=== PATIENT | male | born 1955 | race Caucasian/White ===

== ENCOUNTER 2022-05-20 09:08 | Inpatient (IN) | payer MEDICARE, OTHER ==
[~2022-05-20] VITALS: Ht 182.9 cm; Wt 168.4 kg
[2022-05-20 09:54] LABS: HEMATOCRIT 38.1 % (42.0-52.0); HEMOGLOBIN 12.9 g/dl (13.5-17.5); MEAN CORPUSCULAR HEMOGLOBIN 29.6 pg (27.0-33.0); MEAN CORPUSCULAR HGB CONC 33.9 g/dl (32.0-36.5); MEAN CORPUSCULAR VOLUME 87.4 fl (80.0-96.0); PLATELET COUNT, AUTOMATED 109 10^3/uL (150-450); RED BLOOD COUNT 4.36 10^6/uL (4.30-6.10); WHITE BLOOD COUNT 4.5 10^3/uL (4.0-10.0)
[2022-05-20 10:19] LABS: ATYPICAL LYMPH 12 % (0-5); GIANT PLATELETS 1+; LYMPHOCYTES 14 % (16-44); MONOCYTES 2 % (0-5); NEUTROPHILS 56 % (28-66); PLATELET ESTIMATE DECREASED (NORMAL); SMUDGE CELLS 1+
[2022-05-20 10:21] LABS: ROULEAUX 1+
[2022-05-20 10:26] LABS: RSV AMPLIFICATION NEGATIVE (NEGATIVE)
[2022-05-20 10:30] LABS: BLOOD UREA NITROGEN 22 MG/DL (7-18); CALCIUM LEVEL 7.9 MG/DL (8.8-10.2); CARBON DIOXIDE LEVEL 26 MEQ/L (21-32); CHLORIDE LEVEL 95 MEQ/L (98-107); CREATININE FOR GFR 1.16 MG/DL (0.70-1.30); GLOMERULAR FILTRATION RATE > 60.0 (>49); GLUCOSE, FASTING 100 MG/DL (70-100); POTASSIUM SERUM 4.4 MEQ/L (3.5-5.1); SODIUM LEVEL 128 MEQ/L (136-145)
[2022-05-20 11:14] LABS: ALBUMIN 2.2 GM/DL (3.2-5.2); ALT/SGPT 131 U/L (12-78); BILIRUBIN,DIRECT 1.3 MG/DL (0.0-0.2); NT-PRO BNP 449 PG/ML (<125); TOTAL PROTEIN 7.5 GM/DL (6.4-8.2)
[2022-05-20 12:07] LABS: OSMOLALITY SERUM 276 MOSM/KG (280-301)
[2022-05-20 12:30] LABS: FREE T4 1.15 NG/DL (0.76-1.46)
[2022-05-20 12:33] LABS: OSMOLALITY URINE 554 MOSM/KG (50-1400)
[2022-05-20 12:42] LABS: LIPASE 529 U/L (73-393)
[2022-05-20 13:00] LABS: SODIUM,RANDOM URINE < 10 MEQ/L
[2022-05-20] MEDS ORDERED: ISOVUE-370 76% 100ML VIAL As Ordered ONE (13:21)
[2022-05-20] MEDS ORDERED: APAP325T4 PO (19:07)
[2022-05-20] MEDS ORDERED: HOME MED LIST COMPLETE! XX SCH (19:10)
[2022-05-21] MEDS ORDERED: NS 1,000 ML IV ONE (00:55)
[2022-05-21] MEDS ORDERED: PIPERACILLIN/TAZOBACTAM SOD 4.5 GM in D5W MINI-BAG PLUS 50 ML IV ONE (00:55)
[2022-05-21] MEDS ORDERED: NS 1,000 ML IV SCH (01:55)
[2022-05-21] MEDS ORDERED: MORPHINE 2 MG/ML 1ML VIAL IV PRN (01:55)
[2022-05-21] MEDS ORDERED: ONDANSETRON 4MG 2ML VIAL IV PRN (01:55)
[2022-05-21 03:14] VITALS: BP 120/69
[2022-05-21 05:06] VITALS: BP 120/69
[2022-05-21 06:52] LABS: HEMATOCRIT 37.1 % (42.0-52.0); HEMOGLOBIN 12.5 g/dl (13.5-17.5); MEAN CORPUSCULAR HEMOGLOBIN 29.4 pg (27.0-33.0); MEAN CORPUSCULAR HGB CONC 33.7 g/dl (32.0-36.5); MEAN CORPUSCULAR VOLUME 87.3 fl (80.0-96.0); PLATELET COUNT, AUTOMATED 105 10^3/uL (150-450); RED BLOOD COUNT 4.25 10^6/uL (4.30-6.10)
[2022-05-21 07:00] LABS: INR 1.15; PROTHROMBIN TIME 15.1 SECONDS (12.7-14.5)
[2022-05-21 07:01] LABS: PARTIAL THROMBOPLASTIN TIME 38.5 SECONDS (25.9-37.0)
[2022-05-21 07:09] LABS: ALBUMIN 2.1 GM/DL (3.2-5.2); ALT/SGPT 133 U/L (12-78); BILIRUBIN,TOTAL 1.9 MG/DL (0.2-1.0); BLOOD UREA NITROGEN 19 MG/DL (7-18); CALCIUM LEVEL 7.9 MG/DL (8.8-10.2); CARBON DIOXIDE LEVEL 24 MEQ/L (21-32); CHLORIDE LEVEL 98 MEQ/L (98-107); CREATININE FOR GFR 1.08 MG/DL (0.70-1.30); GLOMERULAR FILTRATION RATE > 60.0 (>49); GLUCOSE, FASTING 88 MG/DL (70-100); LIPASE 468 U/L (73-393); POTASSIUM SERUM 3.8 MEQ/L (3.5-5.1); SODIUM LEVEL 128 MEQ/L (136-145); TOTAL PROTEIN 7.6 GM/DL (6.4-8.2)
[2022-05-21 07:42] LABS: HEMOGLOBIN A1c 5.5 %
[2022-05-21] MEDS ORDERED: PIPERACILLIN/TAZOBACTAM SOD 3.375 GM in D5W MINI-BAG PLUS 50 ML IV SCH (08:00)
[2022-05-21 08:10] LABS: ANISOCYTOSIS 1+; ATYPICAL LYMPH 10 % (0-5); EOSINOPHILS 1 % (0-3); LYMPHOCYTES 21 % (16-44); MONOCYTES 7 % (0-5); NEUTROPHILS 55 % (28-66); PLATELET ESTIMATE DECREASED (NORMAL); ROULEAUX 1+; SMUDGE CELLS 1+
[2022-05-22] MEDS ORDERED: ENOXAPARIN 40MG/0.4ML SYRINGE (J1650 PER 10MG) SC SCH (09:00)
== END 2022-05-21 12:25 | disposition left against medical advice (07) | DRG 445 ==
LOC: M ED 09:08 → M ED INP 05-21 01:51 → ENRESERV 05-21 02:14 → M MS5PR 05-21 03:09
PROVIDERS: ADMIT Family Medicine; ATTEND Internal Medicine
DX: K81.9 Cholecystitis, unspecified (principal); E87.1 Hypo-osmolality and hyponatremia; J98.11 Atelectasis; J90 Pleural effusion, not elsewhere classified; Z68.43 Body mass index [BMI] 50.0-59.9, adult; E66.9 Obesity, unspecified; R60.0 Localized edema; R74.01 Elevation of levels of liver transaminase levels; D64.9 Anemia, unspecified; R74.8 Abnormal levels of other serum enzymes; Z98.41 Cataract extraction status, right eye; Z87.891 Personal history of nicotine dependence; E86.0 Dehydration

== ENCOUNTER 2022-05-23 09:35 | Observation (INO) | payer MEDICARE ==
[~2022-05-23] VITALS: Ht 182.9 cm; Wt 168.6 kg
[~2022-05-23 09:35] MED LIST changes: -COLA100C5 PO; -FOLI1TAB11 PO; -FURO20TA2 PO; -THIA100TA PO; -VITMTA PO
[2022-05-23 12:10] LABS: HEMATOCRIT 38.6 % (42.0-52.0); HEMOGLOBIN 12.6 g/dl (13.5-17.5); MEAN CORPUSCULAR HEMOGLOBIN 28.8 pg (27.0-33.0); MEAN CORPUSCULAR HGB CONC 32.6 g/dl (32.0-36.5); MEAN CORPUSCULAR VOLUME 88.3 fl (80.0-96.0); PLATELET COUNT, AUTOMATED 115 10^3/uL (150-450); RED BLOOD COUNT 4.37 10^6/uL (4.30-6.10); WHITE BLOOD COUNT 3.6 10^3/uL (4.0-10.0)
[2022-05-23 12:28] LABS: INR 1.13; PROTHROMBIN TIME 14.9 SECONDS (12.7-14.5)
[2022-05-23 12:34] LABS: ATYPICAL LYMPH 1 % (0-5); BASOPHILS 1 % (0-1); LYMPHOCYTES 26 % (16-44); MONOCYTES 3 % (0-5); NEUTROPHILS 65 % (28-66)
[2022-05-23 12:35] LABS: ANISOCYTOSIS 1+; PLATELET ESTIMATE DECREASED (NORMAL)
[2022-05-23 12:55] LABS: ACETAMINOPHEN LEVEL < 2.0 UG/ML (10.0-30.0)
[2022-05-23 12:56] LABS: ALBUMIN 2.4 GM/DL (3.2-5.2); ALKALINE PHOSPHATASE 430 U/L (45-117); ALT/SGPT 180 U/L (12-78); AST/SGOT 215 U/L (7-37); BILIRUBIN,DIRECT 1.4 MG/DL (0.0-0.2); BILIRUBIN,TOTAL 2.1 MG/DL (0.2-1.0); BLOOD UREA NITROGEN 12 MG/DL (7-18); CARBON DIOXIDE LEVEL 27 MEQ/L (21-32); CHLORIDE LEVEL 100 MEQ/L (98-107); CREATININE FOR GFR 0.95 MG/DL (0.70-1.30); GLOMERULAR FILTRATION RATE > 60.0 (>49); GLUCOSE, FASTING 91 MG/DL (70-100); LIPASE 435 U/L (73-393); POTASSIUM SERUM 3.8 MEQ/L (3.5-5.1); SODIUM LEVEL 134 MEQ/L (136-145); TOTAL PROTEIN 7.7 GM/DL (6.4-8.2)
[2022-05-23 13:44] LABS: HEPATITIS B SURFACE ANTIGEN NEGATIVE (NEGATIVE)
[2022-05-23 14:12] LABS: HEPATITIS B CORE ANTIBODY IGM NEGATIVE (NEGATIVE); HEPATITIS C VIRUS ABY INDEX < 0.0 INDEX (<0.8)
[2022-05-23 15:09] LABS: NT-PRO BNP 627 PG/ML (<125)
[2022-05-23 15:16] LABS: MONO REFLEX EBV COMP POSITIVE (NEGATIVE)
[2022-05-23] MEDS ORDERED: HOME MED LIST COMPLETE! XX SCH (15:40)
[2022-05-23] MEDS ORDERED: FUROSEMIDE 40MG/4ML VIAL (J1940) IV ONE (15:45)
[2022-05-23 16:25] LABS: CHOLESTEROL LEVEL 190 MG/DL (<200); CHOLESTEROL RISK RATIO 21.111 (<5); HDL CHOLESTEROL 9 MG/DL (>40); LDL CHOLESTEROL 142 MG/DL (<100); NON-HDL-C 181 MG/DL; TRIGLYCERIDES LEVEL 197 MG/DL (<150)
[2022-05-23 17:09] LABS: CK-MB VALUE MASS 3.5 NG/ML (<3.6); MB/CK RELATIVE INDEX 4.61 (< OR =4)
[2022-05-23] MEDS: DOCUSATE SODIUM 100MG CAPSULE PO SCH (21:00)
[2022-05-23] MEDS ORDERED: ENOXAPARIN 40MG/0.4ML SYRINGE (J1650 PER 10MG) SC SCH (21:00)
[2022-05-24 07:52] LABS: HEMOGLOBIN 13.2 g/dl (13.5-17.5); MEAN CORPUSCULAR VOLUME 87.9 fl (80.0-96.0); PLATELET COUNT, AUTOMATED 105 10^3/uL (150-450); RED BLOOD COUNT 4.55 10^6/uL (4.30-6.10); WHITE BLOOD COUNT 3.9 10^3/uL (4.0-10.0)
[2022-05-24 08:30] LABS: ALBUMIN 2.5 GM/DL (3.2-5.2); ALKALINE PHOSPHATASE 465 U/L (45-117); ALT/SGPT 205 U/L (12-78); AST/SGOT 235 U/L (7-37); BILIRUBIN,TOTAL 2.3 MG/DL (0.2-1.0); BLOOD UREA NITROGEN 14 MG/DL (7-18); CARBON DIOXIDE LEVEL 27 MEQ/L (21-32); CHLORIDE LEVEL 99 MEQ/L (98-107); CREATININE FOR GFR 1.06 MG/DL (0.70-1.30); GLOMERULAR FILTRATION RATE > 60.0 (>49); GLUCOSE, FASTING 80 MG/DL (70-100); POTASSIUM SERUM 4.8 MEQ/L (3.5-5.1); SODIUM LEVEL 130 MEQ/L (136-145); TOTAL PROTEIN 8.3 GM/DL (6.4-8.2)
[2022-05-24] MEDS ORDERED: CEFUROXIME 500 MG TAB PO SCH (09:00)
[2022-05-24] MEDS ORDERED: FUROSEMIDE 20 MG TAB PO SCH (09:00)
[2022-05-24] MEDS ORDERED: FOLIC ACID 1MG TAB PO SCH (09:00)
[2022-05-24] MEDS ORDERED: THIAMINE 100 MG TAB PO SCH (09:00)
[2022-05-24] MEDS: DOCUSATE SODIUM 100MG CAPSULE PO SCH (09:00)
[2022-05-24] MEDS ORDERED: MULTIVITAMINS/MINERALS THERAP 1 TAB PO SCH (09:00)
[2022-05-24 12:35] VITALS: BP 119/66
[2022-05-24] MEDS ORDERED: FURO20TA2 PO (13:31)
[2022-05-24] MEDS ORDERED: FOLI1TAB11 PO (13:31)
[2022-05-24] MEDS ORDERED: COLA100C5 PO (13:31)
[2022-05-24] MEDS ORDERED: VITMTA PO (13:31)
[2022-05-24] MEDS ORDERED: THIA100TA PO (13:31)
== END 2022-05-24 13:54 | disposition home or self-care (01) ==
LOC: M ED 09:35 → M ED INP 14:40 → ENRESERV 05-24 12:05
PROVIDERS: ADMIT Internal Medicine; ATTEND Internal Medicine
DX: R53.83 Other fatigue (principal); K70.9 Alcoholic liver disease, unspecified; R74.01 Elevation of levels of liver transaminase levels; R16.2 Hepatomegaly with splenomegaly, not elsewhere classified; R79.9 Abnormal finding of blood chemistry, unspecified; F10.11 Alcohol abuse, in remission; Z87.891 Personal history of nicotine dependence; E78.49 Other hyperlipidemia; E66.01 Morbid (severe) obesity due to excess calories; K59.00 Constipation, unspecified; Z79.899 Other long term (current) drug therapy
CPT/HCPCS: 36415; 70450; 71045; 80048; 80053; 80061; 80076; 80143; 81000; 81015; 82550; 82553; 82977; 83690; 83880; 84484; 85025; 85027; 85610; 86308; 86705; 86709; 86803; 87086; 87340; 87635; 93005; 93306; 96372; 96374; 97161; 99285; G0378; J1650; J1940

== ENCOUNTER → 2022-05-23 | Outpatient (CLI) | payer MEDICARE ==
[~2022-05-23] MED LIST: APAP325T4 PO; COLA100C5 PO; FOLI1TAB11 PO; FURO20TA2 PO; THIA100TA PO; VITMTA PO
== END ==
LOC: M RAD 08:36
PROVIDERS: ATTEND Nurse Practitioner
DX: R26.0 Ataxic gait (principal)